=== PATIENT | female | born 1950 | race Caucasian/White ===

== ENCOUNTER 2016-06-22 15:23 | Inpatient (IN) | payer OTHER, MEDICARE ==
[~2016-06-22] VITALS: Ht 160 cm; Wt 118.8 kg
[~2016-06-22 15:23] MED LIST: GABA300C5 PO; LISI-515 PO; LOVA10TA PO; METF500T PO; NOVO7030P2 SQ; PIOG15TA5 PO
[2016-06-22] MEDS ORDERED: SODIUM CHLORIDE 0.9% FLUSH 10 ML FLUSH IV FLUSH PRN (19:15)
[2016-06-22] MEDS ORDERED: GLUCAGON 1 MG/ML VIAL OTHER PRN (19:30)
[2016-06-22] MEDS ORDERED: DEXTROSE 50% IN WATER 50 ML VIAL(D50) IV PUSH PRN (19:30)
--- NOTE | 2016-06-22 19:35 | HHI.HP ---
HPI Service [facility] Primary [facility] Physician Rajesh Curz MD Admission Diagnosis Diagnoses: (1) Atrial fibrillation with rapid ventricular response Diagnosis: Principal Chief Complaint: Chest pain Travel History International Travel<30 Days: No Contact w/Intl Traveler <30 Da: No Traveled to Known Affected Are: No History of Present Illness Ms. Santos is 65 yo, /[place] with history inclusive of diabetes, hypertension, and hyperlipidemia. Pt reported she had been ill for the past week with symptoms of malaise, headache 9x 2 days), nausea, diarrhea ("1-2 times"), backache (from coughing) and decreased food and fluid intake. She took two doses of Excedrin migraine for her headache and "it went away." pt reported she developed a cough yesterday (06/21/16) and shortly thereafter developed chest pain. Pt noted her fluid intake was decreased yet continued to have her daily "cup of coffee." Pt acknowledged she is "addicted to my coffee. If I don't get it I get a headache." Pt denied chest pain radiating to her neck or shoulder and denied nausea associated with the chest pain. Pt went to see her PCP who obtained an EKG. Upon viewing it, Ms. Santos was sent to [facility] for evaluation and management of her condition. A 10 point ROS was conducted, and except as noted above was negative. Pt denied any other issues or concerns. Review of Systems Except as stated in HPI: all other systems reviewed are Neg Past Family Social History Past Medical History Hypertension Hyperlipidemia Diabetes Past Surgical History Breast surgery for cystic tissue. Knee surgery cartilage removal Reported Medications Reported Meds & Active Scripts Active Reported Lovastatin 10 Mg Tab 10 Mg PO DAILY Pioglitazone (Pioglitazone HCl) 15 Mg Tab 15 Mg PO DAILY Novolin 70-30 Inj (Insulin Human Isoph/Insulin Regular) 1,000 Unit/10 Ml Vial 45 Units SQ BID Lisinopril 20 Mg Tab 20 Mg PO DAILY Gabapentin 300 Mg Cap 300 Mg PO HS Metformin (Metformin HCl) 500 Mg Tab Unknown Dose PO BIDPC With meals Allergies: Coded Allergies: No Known Allergies (Unverified , 06/22/16) Family History Pt's father is reported to have at age 56 due to a "massive heart attack. Father was also reported to have diabetes and alcoholism. Pt reported one of her son's had a heart attack when he was 30. Social History Pt denied smoking but endorsed living in a home in which she is subjected to second hand smoke. Alcohol use was denied Recreational and illicit drug use was denied. Caffeine use is reported to be one cup of coffee, daily. Physical Exam Vital Signs Range of vitals obtained from the [facility] report are as follows: Pulse 140-104 Respiratory rate of 20 Blood pressure 131/92-120/61 Physical Exam GENERAL: This is an obese, well-developed patient, in no apparent distress. SKIN: No rashes, ecchymoses or lesions. Cool and dry. HEAD: Atraumatic. Normocephalic. No temporal or scalp tenderness. EYES: Pupils equal round and reactive. Extraocular motions intact. No scleral icterus. No injection or drainage. ENT: Nose without bleeding, purulent drainage or septal hematoma. Throat without erythema, tonsillar hypertrophy or exudate. Uvula midline. Airway patent. NECK: Trachea midline. No JVD or lymphadenopathy. Supple, nontender, no meningeal signs. CARDIOVASCULAR: Irregularly regular rate and rhythm without murmurs, gallops, or rubs. RESPIRATORY: Clear to auscultation. Breath sounds equal bilaterally. No wheezes , rales, or rhonchi. GASTROINTESTINAL: Abdomen soft, non-tender, nondistended. No hepato-splenomegaly , or palpable masses. No guarding. MUSCULOSKELETAL: Extremities without clubbing, cyanosis, or edema. No joint tenderness, effusion, or edema noted. No calf tenderness. Negative Homans sign bilaterally. NEUROLOGICAL: Awake and alert. Cranial nerves II through XII intact. Motor and sensory grossly within normal limits. Five out of 5 muscle strength in all muscle groups. Normal speech. Laboratory WBC 5.8, HGB 14.7, HCT 44.5, PLT 254 Na 137, K 4.4, Cl 104, CO2 22, BUN 16, Creatinine 0.96, Glucose 109 D dimer 0.59 TSH 3rd generation 0.623 Imaging No acute cardiopulmonary findings. Assessment and Plan Problem List: (1) Atrial fibrillation with rapid ventricular response ICD Code: I48.91 Status: Resolved (2) Diabetes type 2, controlled ICD Code: E11.9 Status: Acute (3) Hyperlipidemia associated with type 2 diabetes mellitus ICD Code: E11.69 Status: Chronic Assessment and Plan Atrial fibrillation with rapid ventricular response Pt seems to have multifactorial issues leading to her atrial fibrillation: dehydration (due to diarrhea and decreased fluid intake), caffeine use ( diuretic effects). Echocardiogram to be ordered Pt to be placed on Holter monitor and placed on telemetry. Pt to be placed on Cardizem 60 mg q 6 hrs for rate control Consult cardiology Lovenox for atrial fibrillation 110 mg sq q 12 hrs Diabetes Will hold her long acting hyperglycemic agent, pt to be placed on sliding scale. Will hold metformin hypoglycemia to be treated per protocol Hypertension Continue home dose of lisinopril 20 mg PO daily Hyperlipidemia continue lovastatin 10 mg daily Written by Valente Morin, acting as scribe for Dr. Zaragoza on 06/22/16 at 19: 34. This note was transcribed by scribe Valente Morin I, Dr. Hernandez Flood personally performed the history, physical exam, and medical decision making; and confirmed the accuracy of the information in the transcribed note. Authenticated by Dr. Hernandez Flood on 06/27/16 at 21:38. Code Status Full code Discussed Condition With Pt, family members present at bed side, ED physician, and Chauncey Green. Physician Certification 2 Midnight Certification Type: Admission for Inpatient Services Order for Inpatient Services The services are ordered in accordance with Medicare regulations or non- Medicare payer requirements, as applicable. In the case of services not specified as inpatient-only, they are appropriately provided as inpatient services in accordance with the 2-midnight benchmark. Estimated LOS (days): 3 3 days is the estimated time the patient will need to remain in the hospital, assuming treatment plan goals are met and no additional complications. Post-Hospital Plan: Home Problem Qualifiers (1) Diabetes type 2, controlled: Qualified Code: E11.42 - Controlled type 2 diabetes mellitus with diabetic polyneuropathy, with long-term current use of insulin Valente Morin Jr. June 22, 2016 19:35 Hernandez Bee MD June 27, 2016 21:39
[2016-06-22 19:58] LABS: CHLORIDE 103 MEQ/L (98-107); POTASSIUM 4.6 MEQ/L (3.5-5.1); SODIUM (NA) 136 MEQ/L (136-145)
[2016-06-22 20:02] LABS: ANION GAP 11 MEQ/L (5-15); BICARBONATE 22.1 MEQ/L (21.0-32.0)
[2016-06-22 20:03] LABS: BLOOD UREA NITROGEN 16 MG/DL (7-18)
[2016-06-22 20:06] LABS: ALT (GPT) 42 U/L (10-53); AST (GOT) 51 U/L (15-37); GLOMERULAR FILTRATION RATE 70 ML/MIN (>89)
[2016-06-22 20:07] LABS: TOTAL BILIRUBIN ADULT 0.4 MG/DL (0.2-1.0)
[2016-06-22 20:08] LABS: ALKALINE PHOSPHATASE 71 U/L (45-117)
[2016-06-22 20:29] VITALS: BP 126/75; PULSE 73; RESP 20; TEMP 96.6; O2SAT 92
[2016-06-22] MEDS: GABAPENTIN 300 MG CAP PO SCH (20:48)
[2016-06-22] MEDS: ENOXAPARIN SODIUM 120 MG/0.8 ML SYRINGE SQ SCH (20:49)
[2016-06-22] MEDS: SODIUM CHLORIDE 0.9% FLUSH 10 ML FLUSH IV FLUSH SCH (20:51)
[2016-06-22] MEDS: INSULIN ASPART SUPPLEMENTAL SCALE SQ SCH (21:00)
[2016-06-22 21:05] VITALS: O2SAT 94
[2016-06-22 23:00] VITALS: PULSE 100
[2016-06-23] VITALS (12 sets, daily range): BP systolic 95–121; BP diastolic 53–71; PULSE 62–98; RESP 16–22; TEMP 96.9–99.1; O2SAT 90–95
[2016-06-23] MEDS: DILTIAZEM HCL 60 MG TAB PO SCH ×4 (00:46→17:36)
[2016-06-23] MEDS: INSULIN ASPART SUPPLEMENTAL SCALE SQ SCH ×4 (06:06→20:36)
[2016-06-23 08:46] LABS: HEMATOCRIT 44.9 % (35.0-46.0); MEAN CELL VOLUME 86.9 FL (80.0-100.0); MEAN CORPUSCULAR HEMOGLOBIN 28.5 PG (27.0-34.0); MEAN CORPUSCULAR HGB CONC 32.8 % (32.0-36.0); PLATELET COUNT 221 TH/MM3 (150-450); RED BLOOD COUNT 5.16 MIL/MM3 (4.00-5.30); RED CELL DISTRIBUTION WIDTH 12.8 % (11.6-17.2); REVIEW FLAG FINAL; WHITE BLOOD COUNT 4.7 TH/MM3 (4.0-11.0)
[2016-06-23] MEDS ORDERED: LISINOPRIL 20 MG TAB PO SCH (09:00)
[2016-06-23] MEDS: PRAVASTATIN SOD 10 MG TAB PO SCH (09:02)
[2016-06-23] MEDS: ENOXAPARIN SODIUM 120 MG/0.8 ML SYRINGE SQ SCH (09:03)
[2016-06-23] MEDS: SODIUM CHLORIDE 0.9% FLUSH 10 ML FLUSH IV FLUSH SCH ×2 (09:03→20:35)
[2016-06-23] MEDS: AZITHROMYCIN INJ 500 MG in SODIUM CHLOR 0.9% 250 ML INJ 250 ML IV SCH (11:57)
[2016-06-23] MEDS: cefTRIAXone INJ 2,000 MG in SODIUM CHLORIDE 0.9% INJ 100 ML IV SCH (11:57)
[2016-06-23] MEDS ORDERED: APIXABAN 5 MG TABLET PO SCH (12:00)
--- NOTE | 2016-06-23 12:13 | RADHPO ---
EXAM DATE/TIME: 06/23/2016 11:33 [facility] COMPARISON: CHEST SINGLE AP, June 22, 2016, 11:08. INDICATIONS : Cough MEDICAL HISTORY : a fib SURGICAL HISTORY : None. ENCOUNTER: Subsequent ACUITY: 2 days PAIN SCORE: 0/10 LOCATION: Bilateral chest FINDINGS: PA and lateral views of the chest demonstrate the lungs to be symmetrically aerated without evidence of mass, infiltrate or effusion. The heart size remains mildly enlarged no perihilar edema. Atherosc lerotic changes are present in the aorta. Osseous structures are intact. CONCLUSION: 1. No evidence of pneumonia. 2. Mild cardiomegaly. Yovany Canseco MD on June 23, 2016 at 12:11 Board Certified Radiologist. This report was verified electronically.
--- NOTE | 2016-06-23 14:13 | MB ---
cc: VESTA BRUCE DO DATE OF CONSULTATION: 06/23/2016. REASON FOR CONSULTATION: Atrial fibrillation with rapid ventricular response. HISTORY OF PRESENT ILLNESS: Sylvie Santos is a pleasant 65-year-old female who originally presented to the [facility] Emergency Room for a cough and feeling ill over the past few days. She states that she has not been feeling well for three to four days. She took an Excedrin Migraine for a headache which made it go away. She still continued to have a cough specifically more yesterday and with the coughing she did have some chest pain. The chest pain was only there when she was coughing. She felt that she may have had the flu so she presented to the [facility]. While there, she was found to be in atrial fibrillation with rapid ventricular response and was sent to [facility] for further admission. On seeing her, she currently asymptomatic. PAST MEDICAL HISTORY: 1. New onset atrial fibrillation. 2. Hypertension. 3. Hyperlipidemia. 4. Diabetes mellitus. PAST SURGICAL HISTORY: 1. Breast surgery for cystic tissue. 2. Knee surgery for cartilage removal. ALLERGIES: NO KNOWN DRUG ALLERGIES. MEDICATIONS: 1. Lisinopril 20 milligrams daily. 2. Gabapentin 300 milligrams every night. 3. Metformin 500 milligrams twice a day. 4. Lovastatin 10 milligrams daily. 5. Novolin 70/30 45 units twice a day. 6. Pioglitazone 15 milligrams daily. FAMILY HISTORY: Per the patient, her father at the age of 55 due to a massive heart attack. SOCIAL HISTORY: The patient does not smoke but she does live in a home where she is subjected to secondhand smoke. Denies alcohol or illicit drug abuse. Does drink one cup of coffee daily. REVIEW OF SYSTEMS Fourteen systems were reviewed including osteopathic with pertinent positives and negatives as above; otherwise negative. PHYSICAL EXAMINATION VITAL SIGNS: Temperature 97.2, heart rate 62, blood pressure 114/67, respirations 20, pulse oximetry 95% on one liter. GENERAL: In general the patient appears well and in no acute distress. Awake, alert and oriented times three. HEENT: Extraocular muscles intact. Mucous membranes moist. NECK: The neck is supple. No JVD at 45 degrees. No carotid bruits heard bilaterally. Carotid upstroke is brisk in nature. HEART: Regular rate and rhythm. Positive first and second heart sounds with no noted murmurs, gallops or rubs. LUNGS: Decreased breath sounds at bilateral bases but no overt wheezes, rales or rhonchi. ABDOMEN: Soft, obese, nontender, nondistended. No organomegaly noted. EXTREMITIES: Trace edema bilaterally. No clubbing or cyanosis. NEUROLOGIC: No focal deficits. SKIN: Warm, dry and intact. OSTEOPATHIC: Osteopathically, mild lordosis. No kyphoscoliosis or paraspinal tender points. LABORATORY STUDIES: Hemoglobin 14.7, hematocrit 44.9, platelets 221,000. Potassium 4.6, BUN 16, creatinine 0.82. Troponin negative x2. BNP 69. TSH is 0.623. IMPRESSION: 1. New onset atrial fibrillation for which she presented with rapid ventricular response, [id number] score of 4. 2. Pleuritic type chest pain secondary to coughing. 3. Diabetes mellitus type 2. 4. History of hypertension 5. Obesity. RECOMMENDATIONS: 1. Ms. Santos appears to have presented with atrial fibrillation with rapid ventricular response. She was treated with Cardizem IV and then followed up with oral Cardizem and has since been in normal sinus rhythm. Will plan to continue her on Cardizem p.o. and this may be transferred to long-acting Cardizem upon discharge. 2. She has been started on Lovenox injections, and I believe with the high [id number] score of 4, that she should be on anticoagulation long-term. I discussed this with her and she states that she has no falls and no problems with bleeding. Will plan on placing her on Eliquis 5 milligrams twice a day. Will ask case management to see if they can help with resources for her to make sure that she can get her medications. After Eliquis has been started, Lovenox IV can be stopped. 3. Will check a 2-D echo for overall left ventricular function, cardiac structure and possible valvulopathies. 4. Will plan to watch her overnight and if stable in the morning can be discharged home. I did ask that she follow up with one of the cardiologists in the [place] office. She does not drive but will find a ride and set up an appointment. Thank you for allowing me to see Sylvie Santos. If there are any questions please do not hesitate to call. Vesta RIOS/BECK /11:48 AM /1:58 PM
--- NOTE | 2016-06-23 14:30 | HHI.PR ---
Subjective Remarks Patient c/o cough and productive sputum denies cp, sob or palpitations denies diarrhea, nausea, vomiting states feels better satting 90% on 1 liter nasal canula Objective Vitals Vital Signs Date Time Temp Pulse Resp B/P Pulse Ox O2 Delivery O2 Flow Rate FiO2 06/23/16 13:45 84 06/23/16 12:00 97.7 89 20 121/61 93 06/23/16 08:00 97.2 62 20 114/67 90 06/23/16 05:43 98.3 66 18 105/68 95 06/23/16 00:29 99.1 72 22 103/53 92 06/22/16 23:00 100 06/22/16 21:05 94 Nasal Cannula 1.00 06/22/16 20:29 96.6 73 20 126/75 92 I/O 06/22/16 06/22/16 06/22/16 06/23/16 06/23/16 06/23/16 07:00 15:00 23:00 07:00 15:00 23:00 Intake Total 0 ml 810 ml Balance 0 ml 810 ml Intake Oral 450 ml IV Total 0 ml 360 ml # Voids 1 3 Result Diagram: 06/23/16 0830 06/22/16 1940 Imaging Last Impressions Chest X-Ray 06/23/16 0000 Signed Impressions: Service Date/Time: Thursday, June 23, 2016 11:33 - CONCLUSION: 1. No evidence of pneumonia. 2. Mild cardiomegaly. Yovany Canseco MD Objective Remarks GENERAL: This is an obese, well-developed patient, in no apparent distress. SKIN: No rashes, ecchymoses or lesions. Cool and dry. HEAD: Atraumatic. Normocephalic. No temporal or scalp tenderness. EYES: Pupils equal round and reactive. Extraocular motions intact. No scleral icterus. No injection or drainage. ENT: Nose without bleeding, purulent drainage or septal hematoma. Throat without erythema, tonsillar hypertrophy or exudate. Uvula midline. Airway patent. NECK: Trachea midline. No JVD or lymphadenopathy. Supple, nontender, no meningeal signs. CARDIOVASCULAR: Irregularly regular rate and rhythm without murmurs, gallops, or rubs. RESPIRATORY: Crackles auscultated in the right base. The rest of the lung avitia are clear to auscultation. GASTROINTESTINAL: Abdomen soft, non-tender, nondistended. No hepato-splenomegaly , or palpable masses. No guarding. MUSCULOSKELETAL: Extremities without clubbing, cyanosis, or edema. No joint tenderness, effusion, or edema noted. No calf tenderness. Negative Homans sign bilaterally. NEUROLOGICAL: Awake and alert. Cranial nerves II through XII intact. Motor and sensory grossly within normal limits. Five out of 5 muscle strength in all muscle groups. Normal speech. Medications and IVs Current Medications Medications (Trade) Dose Ordered Sig/Jeanine Route Start Time Stop Time Status Last Admin (NS Flush) 2 ml UNSCH PRN IV FLUSH 06/22/16 19:15 (NS Flush) 2 ml BID IV FLUSH 06/22/16 21:00 06/23/16 09:03 (Cardizem) 60 mg Q6HR PO 06/23/16 00:00 06/23/16 11:57 (Neurontin) 300 mg HS PO 06/22/16 21:00 06/22/16 20:48 (Prinivil) 20 mg DAILY PO 06/23/16 09:00 (Pravachol) 10 mg DAILY PO 06/23/16 09:00 06/23/16 09:02 (D50w (Vial) Inj) 25 ml UNSCH PRN IV PUSH 06/22/16 19:30 Glucagon 1 mg 1 mg UNSCH PRN OTHER 06/22/16 19:30 Ceftriaxone Sodium 2000 mg/ Sodium Chloride 100 ml @ 200 mls/hr Q24H IV 06/23/16 12:00 06/23/16 11:57 (Zithromax Inj/ NS 250 ml Inj) 250 ml @ 250 mls/hr Q24H IV 06/23/16 13:00 06/23/16 11:57 (Eliquis) 5 mg BID PO 06/23/16 21:00 Urinary Catheter: No Vascular Central Line Catheter: No A/P Problem List: (1) New onset atrial fibrillation ICD Code: I48.91 Status: Acute Plan: Patient with new onset atrial fibrillation with multifactorial issues including to atrial fibrillation including dehydration, caffeine use and suspected early pneumonia versus bronchitis since patient has had cough and congestion for the past week. Echocardiogram ordered and pending, continue to monitor on telemetry Heart rate seems to be controlled on Cardizem 60 mg by mouth every 6 hours for rate control Cardiology consulted Patient started on Lovenox and transition to Eliquis (2) Atrial fibrillation with rapid ventricular response ICD Code: I48.91 Status: Resolved Plan: As above. (3) Diabetes mellitus with hyperglycemia ICD Code: E11.65 Status: Chronic Plan: Check hemoglobin A1c. Patient started on necessary with insulin NovoLog as patient has reportedly had episodes of hypoglycemia at home. I will resume Novolin 70/30 at 15 units subcutaneously twice a day. I will also resume pioglitazone. Continue to monitor Accu-Cheks and continue to cover blood sugars with SSI with insulin NovoLog. (4) H/O hypoglycemia ICD Code: Z86.39 Status: Acute Plan: All home diabetes medications held admission due to multiple episodes of hypoglycemic events reported by the patient. I will restart insulin Novolin 7030 at 15 units subcutaneous twice a day. I will also restart pioglitazone and continue to hold metformin. (5) Hyperlipidemia associated with type 2 diabetes mellitus ICD Code: E11.69 Status: Chronic Plan: Continue statin. (6) HTN (hypertension) ICD Code: I10 Status: Chronic Plan: Blood pressure seems to be stable. Continue lisinopril. (7) Cough ICD Code: R05 Status: Acute Plan: Patient has crackles in the right lung base. Patient complains of cough with greenish productive sputum. This is associated with the crackles at the right lung base clinically suspicious for early pneumonia versus bronchitis. I will check a chest x-ray, sputum culture, strep and pneumococcal urinary antigen. I will start the patient on empiric IV Rocephin and azithromycin to cover for community-acquired pneumonia which could've easily been one of the factors in offsetting the atrial fibrillation with RVR. Assessment and Plan DVT prophylaxis: On Eliquis. Problem Qualifiers (1) Diabetes mellitus with hyperglycemia: (2) HTN (hypertension): Qualified Code: I10 - Essential hypertension Hernandez Bee MD June 23, 2016 14:30
--- NOTE | 2016-06-23 14:53 | EC ---
Study Study Date:06/23/2016 STUDY CONCLUSIONS SUMMARY - Left ventricle: The cavity size was normal. Wall thickness was normal. Systolic function was normal. The estimated ejection fraction was in the range of 60% to 65%. Wall motion was normal; there were no regional wall motion abnormalities. Left ventricular diastolic function parameters were normal. - Aortic valve: Valve area: 2.05cm^2(VTI). Valve area: 2.03cm^2 (Vmax). - Pulmonary arteries: PA peak pressure: 39mm Hg (S). If LV function is below 40, please consider prescribing an ACEI or ARB or document rationale for non-use. PROCEDURE DATA STUDY STATUS: Elective. Procedure: Transthoracic echocardiography. Image quality was good. Scanning was performed from the parasternal, apical, and subcostal acoustic windows. Study completion: The patient tolerated the procedure well. Transthoracic echocardiography. M-mode, complete 2D, complete spectral Doppler, and color Doppler. Height: Height: 63in. Weight: Weight: 257.5lb. Body mass index: BMI: 45.7kg/m^2. Body surface area: BSA: 2.15m^2. Patient status: Inpatient. CARDIAC ANATOMY LEFT VENTRICLE: The cavity size was normal. Wall thickness was normal. Systolic function was normal. The estimated ejection fraction was in the range of 60% to 65%. Wall motion was normal; there were no regional wall motion abnormalities. The transmitral flow pattern was normal. The deceleration time of the early transmitral flow velocity was normal. The pulmonary vein flow pattern was normal. The tissue Doppler parameters were normal. Left ventricular diastolic function parameters were normal. AORTIC VALVE: Trileaflet; normal thickness leaflets. Doppler: Transvalvular velocity was within the normal range. There was no stenosis. No regurgitation. Valve area: 2.05cm^2(VTI). Indexed valve area: 0.95cm^2/m^2 (VTI). Valve area: 2.03cm^2 (Vmax). Indexed valve area: 0.94cm^2/m^2 (Vmax). Mean gradient: 6mm Hg (S). Peak gradient: 11mm Hg (S). AORTA: Aortic root: The aortic root was normal in size. MITRAL VALVE: Structurally normal valve. Doppler: Transvalvular velocity was within the normal range. There was no evidence for stenosis. Trace to mild regurgitation. Peak gradient: 4mm Hg (D). LEFT ATRIUM: The atrium was normal in size. RIGHT VENTRICLE: The cavity size was normal. Wall thickness was normal. Systolic pressure was within the normal range. PULMONIC VALVE: Doppler: Transvalvular velocity was within the normal range. There was no evidence for stenosis. Trace regurgitation. TRICUSPID VALVE: Structurally normal valve. Doppler: Transvalvular velocity was within the normal range. Trace to mild regurgitation. PULMONARY ARTERY: The main pulmonary artery was normal-sized. Systolic pressure was within the normal range. RIGHT ATRIUM: The atrium was normal in size. PERICARDIUM: There was no pericardial effusion. SYSTEMIC VEINS: Inferior vena cava: The vessel was normal in size. Patient weight: 257.5lb _Ejection fraction:_ 65-75% _Fractional shortening:_ 32% up to 5Kg 5-11.5Kg 11.6-22.9Kg 23-45Kg 45-57Kg Aortic Root 7-13 <17 13-22 17-27 17-27 LA diam 6-13 <23 24-38 33-47 37-40 RVID 10-17 7-15 7-15 7-18 8-17 LVIDd 12-22 <32 24-38 33-47 37-40 LVPW 2-4 3-6 5-7 6-8 7-8 IVS 2-4 3-6 5-7 6-8 7-8 BASIC MEASUREMENTS ADULT NORMAL Left ventricle LV internal dimension, ED, chordal *54.9 mm 43-52 level, PLAX LV internal dimension, ES, chordal 34.9 mm 23-38 level, PLAX Fractional shortening, chordal level, 36 % >29 PLAX LV posterior wall thickness, ED 8.8 mm IVS/LVPW ratio, ED 0.94 <1.3 Ventricular septum Septal thickness, ED 8.29 mm Aortic valve Leaflet separation 20 mm 15-26 Aorta Root diameter, ED 30 mm Left atrium Anterior-posterior dimension 35 mm Anterior-posterior dimension index 1.63 cm/m^2 <2.2 BASIC MEASUREMENTS ADULT NORMAL Aortic valve Leaflet separation 20 mm 15-26 DOPPLER MEASUREMENTS ADULT NORMAL Main pulmonary artery Pressure, S *39 mm Hg =30 Aortic valve Peak velocity, S 168 cm/s Mean velocity, S 115 cm/s VTI, S 33.4 cm Mean gradient, S 6 mm Hg Peak gradient, S 11 mm Hg Valve area, VTI 2.05 cm^2 Valve area index, VTI 0.95 cm^2/m^2 Valve area, Vmax 2.03 cm^2 Valve area index, Vmax 0.94 cm^2/m^2 Mitral valve Peak E-wave velocity 104 cm/s Peak A-wave velocity 80.5 cm/s Deceleration time 208 ms 150-230 Peak gradient, D 4 mm Hg Peak E/A ratio 1.3 Tricuspid valve Regurgitant peak velocity 273 cm/s Peak RV-RA gradient, S 30 mm Hg Maximal regurgitant velocity 273 cm/s Systemic veins Estimated CVP 10 mm Hg Right ventricle RV pressure, S *40 mm Hg <30 Pulmonic valve Peak velocity, S 54.1 cm/s LEGEND: Mean values are shown as u=mean value. Asterisk (*) sidhu values outside specified normal range. Prepared and signed by Eligio Knox [id number]
[2016-06-23] MEDS: DILTIAZEM HCL 30 MG TAB PO SCH (18:00)
[2016-06-23] MEDS: APIXABAN 5 MG TABLET PO SCH (20:35)
[2016-06-23] MEDS: GABAPENTIN 300 MG CAP PO SCH (20:35)
[2016-06-24] VITALS (10 sets, daily range): BP systolic 82–118; BP diastolic 59–79; PULSE 78–105; RESP 16–20; TEMP 96.3–98.9; O2SAT 92–99
[2016-06-24] MEDS: DILTIAZEM HCL 30 MG TAB PO SCH ×4 (05:53→18:26)
[2016-06-24] MEDS: INSULIN ASPART SUPPLEMENTAL SCALE SQ SCH ×4 (06:28→20:56)
[2016-06-24] MEDS: APIXABAN 5 MG TABLET PO SCH ×2 (08:36→20:56)
[2016-06-24] MEDS: SODIUM CHLORIDE 0.9% FLUSH 10 ML FLUSH IV FLUSH SCH ×2 (08:36→20:56)
[2016-06-24] MEDS: PRAVASTATIN SOD 10 MG TAB PO SCH (08:36)
[2016-06-24] MEDS ORDERED: SODIUM CHLORID 0.9% 500 ML INJ 500 ML IV ONE (08:45)
[2016-06-24] MEDS ORDERED: DILTIAZEM HCL 30 MG TAB PO ONE (09:00)
--- NOTE | 2016-06-24 10:05 | PD.CARD.PN ---
Subjective Subjective Remarks No chest pain, no shortness of breath Objective Medications Current Medications Medications (Trade) Dose Ordered Sig/Jeanine Route Start Time Stop Time Status Last Admin (NS Flush) 2 ml UNSCH PRN IV FLUSH 06/22/16 19:15 (NS Flush) 2 ml BID IV FLUSH 06/22/16 21:00 06/24/16 08:36 (Neurontin) 300 mg HS PO 06/22/16 21:00 06/23/16 20:35 (Prinivil) 20 mg DAILY PO 06/23/16 09:00 Hold (Pravachol) 10 mg DAILY PO 06/23/16 09:00 06/24/16 08:36 (D50w (Vial) Inj) 25 ml UNSCH PRN IV PUSH 06/22/16 19:30 Glucagon 1 mg 1 mg UNSCH PRN OTHER 06/22/16 19:30 Ceftriaxone Sodium 2000 mg/ Sodium Chloride 100 ml @ 200 mls/hr Q24H IV 06/23/16 12:00 06/23/16 11:57 (Zithromax Inj/ NS 250 ml Inj) 250 ml @ 250 mls/hr Q24H IV 06/23/16 13:00 06/23/16 11:57 (Eliquis) 5 mg BID PO 06/23/16 21:00 06/24/16 08:36 (Cardizem) 30 mg Q6HR PO 06/24/16 12:00 Vital Signs / I&O Vital Signs Date Time Temp Pulse Resp B/P Pulse Ox O2 Delivery O2 Flow Rate FiO2 06/24/16 07:58 97.9 99 20 115/72 93 06/24/16 07:01 92 06/24/16 04:50 96.3 78 20 99/60 99 06/24/16 00:56 98.9 81 16 92/62 92 06/23/16 23:00 81 06/23/16 21:01 98.7 84 16 95/61 92 06/23/16 20:29 98.7 84 16 95/61 92 06/23/16 19:59 98 06/23/16 19:50 93 21 06/23/16 16:00 96.9 86 20 101/71 93 06/23/16 15:07 90 06/23/16 13:45 84 06/23/16 12:00 97.7 89 20 121/61 93 I/O 06/23/16 06/23/16 06/23/16 06/24/16 06/24/16 06/24/16 07:00 15:00 23:00 07:00 15:00 23:00 Intake Total 0 ml 810 ml Balance 0 ml 810 ml Intake Oral 450 ml IV Total 0 ml 360 ml # Voids 3 3 Physical Exam GENERAL: NAD, AAOx3 SKIN: Warm and dry. HEAD: Atraumatic. Normocephalic. EYES: Pupils equal and round. No scleral icterus. No injection or drainage. ENT: No nasal bleeding or discharge. Mucous membranes pink and moist. NECK: Trachea midline. No JVD. CARDIOVASCULAR: Irregularly irregular RESPIRATORY: No accessory muscle use. Decreased breath sounds bilaterally GASTROINTESTINAL: Abdomen soft, non-tender, nondistended. Hepatic and splenic margins not palpable. MUSCULOSKELETAL: Trace edema bilaterally NEUROLOGICAL: Awake and alert. No obvious cranial nerve deficits. Motor grossly within normal limits. Five out of 5 muscle strength in the arms and legs. Normal speech. PSYCHIATRIC: Appropriate mood and affect; insight and judgment normal. Laboratory Laboratory Tests Test 06/22/16 06/23/16 19:40 08:30 Sodium Level 136 MEQ/L (136-145) Potassium Level 4.6 MEQ/L (3.5-5.1) Chloride Level 103 MEQ/L (98-107) Carbon Dioxide Level 22.1 MEQ/L (21.0-32.0) Anion Gap 11 MEQ/L (5-15) Blood Urea Nitrogen 16 MG/DL (7-18) Creatinine 0.82 MG/DL (0.50-1.00) Estimat Glomerular Filtration 70 ML/MIN (>89) Rate Random Glucose 189 MG/DL (74-106) Calcium Level 9.4 MG/DL (8.5-10.1) Total Bilirubin 0.4 MG/DL (0.2-1.0) Aspartate Amino Transf 51 U/L (15-37) (AST/SGOT) Alanine Aminotransferase 42 U/L (10-53) (ALT/SGPT) Alkaline Phosphatase 71 U/L (45-117) Total Protein 8.0 GM/DL (6.4-8.2) Albumin 3.3 GM/DL (3.4-5.0) White Blood Count 4.7 TH/MM3 (4.0-11.0) Red Blood Count 5.16 MIL/MM3 (4.00-5.30) Hemoglobin 14.7 GM/DL (11.6-15.3) Hematocrit 44.9 % (35.0-46.0) Mean Corpuscular Volume 86.9 FL (80.0-100.0) Mean Corpuscular Hemoglobin 28.5 PG (27.0-34.0) Mean Corpuscular Hemoglobin 32.8 % Concent (32.0-36.0) Red Cell Distribution Width 12.8 % (11.6-17.2) Platelet Count 221 TH/MM3 (150-450) Mean Platelet Volume 8.5 FL (7.0-11.0) Assessment and Plan Problem List: (1) New onset atrial fibrillation (2) Atrial fibrillation with rapid ventricular response (3) Diabetes mellitus with hyperglycemia (4) HTN (hypertension) Assessment and Plan 1) New onset Atrial Fibrillation, CHADSVASc = 4 Started on Eliquis 5mg BID Heart rates mostly controlled on Cardizem, can change to long acting on discharge 2) EF 60-65% 3) Cardiovascularly stable for discharge 4) [place] office for follow up and consideration of outpatient stress testing 5) Will see PRN, call with questions Problem Qualifiers (1) Diabetes mellitus with hyperglycemia: (2) HTN (hypertension): Qualified Code: I10 - Essential hypertension Gabino Sinclair DO June 24, 2016 10:05
[2016-06-24] MEDS ORDERED: RESP: ALBUTEROL 0.63 MG/3 ML NEB (SCH) NEB ONE (10:30)
--- NOTE | 2016-06-24 11:25 | HHI.PR ---
Subjective Remarks As per RN the patient's blood pressure has been low since yesterday and the patient did not get her doses of by mouth Cardizem The patient tolerated this a.m. was in the 150s to 160s as reported by RN Patient denies chest pain or short of breath Denies palpitations States she is still coughing and bringing up greenish phlegm, however the cough has been improving. Denies fevers or chills Denies diarrhea Objective Vitals Vital Signs Date Time Temp Pulse Resp B/P Pulse Ox O2 Delivery O2 Flow Rate FiO2 06/24/16 10:30 93 21 06/24/16 07:58 97.9 99 20 115/72 93 06/24/16 07:01 92 06/24/16 04:50 96.3 78 20 99/60 99 06/24/16 00:56 98.9 81 16 92/62 92 06/23/16 23:00 81 06/23/16 21:01 98.7 84 16 95/61 92 06/23/16 20:29 98.7 84 16 95/61 92 06/23/16 19:59 98 06/23/16 19:50 93 21 06/23/16 16:00 96.9 86 20 101/71 93 06/23/16 15:07 90 06/23/16 13:45 84 06/23/16 12:00 97.7 89 20 121/61 93 I/O 06/23/16 06/23/16 06/23/16 06/24/16 06/24/16 06/24/16 07:00 15:00 23:00 07:00 15:00 23:00 Intake Total 0 ml 810 ml Balance 0 ml 810 ml Intake Oral 450 ml IV Total 0 ml 360 ml # Voids 3 3 Result Diagram: 06/23/16 0830 06/22/16 1940 Imaging Last Impressions Chest X-Ray 06/23/16 0000 Signed Impressions: Service Date/Time: Thursday, June 23, 2016 11:33 - CONCLUSION: 1. No evidence of pneumonia. 2. Mild cardiomegaly. Yovany Canseco MD Objective Remarks GENERAL: This is an obese, well-developed patient, in no apparent distress. SKIN: No rashes, ecchymoses or lesions. Cool and dry. HEAD: Atraumatic. Normocephalic. No temporal or scalp tenderness. EYES: Pupils equal round and reactive. Extraocular motions intact. No scleral icterus. No injection or drainage. ENT: Nose without bleeding, purulent drainage or septal hematoma. Throat without erythema, tonsillar hypertrophy or exudate. Uvula midline. Airway patent. NECK: Trachea midline. No JVD or lymphadenopathy. Supple, nontender, no meningeal signs. CARDIOVASCULAR: Irregularly regular rate and rhythm without murmurs, gallops, or rubs. RESPIRATORY: Expiratory wheezing on right lung field. The rest of the lung avitia are clear to auscultation. GASTROINTESTINAL: Abdomen soft, non-tender, nondistended. No hepato-splenomegaly , or palpable masses. No guarding. MUSCULOSKELETAL: Extremities without clubbing, cyanosis, or edema. No joint tenderness, effusion, or edema noted. No calf tenderness. Negative Homans sign bilaterally. NEUROLOGICAL: Awake and alert. Cranial nerves II through XII intact. Motor and sensory grossly within normal limits. Five out of 5 muscle strength in all muscle groups. Normal speech. Procedures None Medications and IVs Current Medications Medications (Trade) Dose Ordered Sig/Jeanine Route Start Time Stop Time Status Last Admin (NS Flush) 2 ml UNSCH PRN IV FLUSH 06/22/16 19:15 (NS Flush) 2 ml BID IV FLUSH 06/22/16 21:00 06/24/16 08:36 (Neurontin) 300 mg HS PO 06/22/16 21:00 06/23/16 20:35 (Prinivil) 20 mg DAILY PO 06/23/16 09:00 Hold (Pravachol) 10 mg DAILY PO 06/23/16 09:00 06/24/16 08:36 (D50w (Vial) Inj) 25 ml UNSCH PRN IV PUSH 06/22/16 19:30 Glucagon 1 mg 1 mg UNSCH PRN OTHER 06/22/16 19:30 Ceftriaxone Sodium 2000 mg/ Sodium Chloride 100 ml @ 200 mls/hr Q24H IV 06/23/16 12:00 06/23/16 11:57 (Zithromax Inj/ NS 250 ml Inj) 250 ml @ 250 mls/hr Q24H IV 06/23/16 13:00 06/23/16 11:57 (Eliquis) 5 mg BID PO 06/23/16 21:00 06/24/16 08:36 (Cardizem) 30 mg Q6HR PO 06/24/16 12:00 Urinary Catheter: No Vascular Central Line Catheter: No A/P Problem List: (1) New onset atrial fibrillation ICD Code: I48.91 Status: Acute (2) Atrial fibrillation with rapid ventricular response ICD Code: I48.91 Status: Resolved (3) Diabetes mellitus with hyperglycemia ICD Code: E11.65 Status: Chronic (4) H/O hypoglycemia ICD Code: Z86.39 Status: Acute (5) Hyperlipidemia associated with type 2 diabetes mellitus ICD Code: E11.69 Status: Chronic (6) HTN (hypertension) ICD Code: I10 Status: Chronic (7) Cough ICD Code: R05 Status: Acute (8) Wheezing ICD Code: R06.2 Status: Acute Plan: Will give treatment with inhaled albuterol 0.63% to minimize tachycardia. (9) CAP (community acquired pneumonia) ICD Code: J18.9 Status: Acute Assessment and Plan (1) New onset atrial fibrillation Plan: Patient with new onset atrial fibrillation with multifactorial issues including to atrial fibrillation including dehydration, caffeine use and suspected early pneumonia versus bronchitis since patient has had cough and congestion for the past week. Echocardiogram ordered and pending, continue to monitor on telemetry Dose of Cardizem decreased to 30 mg by mouth every 6 hours due to blood pressure being low. Holding parameters written. Cardiology consulted Patient started on Lovenox and transition to Eliquis (2) Atrial fibrillation with rapid ventricular response Plan: As above. (3) Diabetes mellitus with hyperglycemia Plan: Check hemoglobin A1c. Patient started on necessary with insulin NovoLog as patient has reportedly had episodes of hypoglycemia at home. Patient started on Novolin 70/30 at 50 units subcutaneously twice a day. Pioglitazone resumed. Blood sugars much improved. Continue SSI with insulin NovoLog and continue to monitor Accu-Cheks. (4) H/O hypoglycemia Plan: All home diabetes medications held admission due to multiple episodes of hypoglycemic events reported by the patient. No episodes of hypoglycemia on above-mentioned insulin regimen. (5) Hyperlipidemia associated with type 2 diabetes mellitus Plan: Continue statin. (6) HTN (hypertension)c Plan: Blood pressure in the 90s systolic yesterday and overnight. I will give 500 mL of normal saline IV bolus and hold lisinopril for now. (7) community-acquired pneumonia Plan: Patient has crackles in the right lung base. Patient complains of cough with greenish productive sputum. This is associated with the crackles at the right lung base clinically suspicious for early pneumonia versus bronchitis. I will check a chest x-ray, sputum culture, strep and pneumococcal urinary antigen. I will start the patient on empiric IV Rocephin and azithromycin to cover for community-acquired pneumonia which could've easily been one of the factors in offsetting the atrial fibrillation with RVR. DVT prophylaxis: On Eliquis. Discharge Planning Possible discharge later today or tomorrow in a.m. if rate controlled and wheezing improved. Problem Qualifiers (1) Diabetes mellitus with hyperglycemia: (2) HTN (hypertension): Qualified Code: I10 - Essential hypertension Hernandez Bee MD June 24, 2016 11:24
[2016-06-24] MEDS: cefTRIAXone INJ 2,000 MG in SODIUM CHLORIDE 0.9% INJ 100 ML IV SCH (11:42)
[2016-06-24] MEDS: AZITHROMYCIN INJ 500 MG in SODIUM CHLOR 0.9% 250 ML INJ 250 ML IV SCH (11:43)
[2016-06-24] MEDS ORDERED: DILTIAZEM HCL 60 MG TAB PO SCH (12:00)
[2016-06-24 12:59] LABS: HEMATOCRIT 43.4 % (35.0-46.0); MEAN CELL VOLUME 85.6 FL (80.0-100.0); MEAN CORPUSCULAR HEMOGLOBIN 28.5 PG (27.0-34.0); MEAN CORPUSCULAR HGB CONC 33.3 % (32.0-36.0); PLATELET COUNT 188 TH/MM3 (150-450); RED BLOOD COUNT 5.06 MIL/MM3 (4.00-5.30); RED CELL DISTRIBUTION WIDTH 12.7 % (11.6-17.2); WHITE BLOOD COUNT 6.9 TH/MM3 (4.0-11.0)
[2016-06-24 13:05] LABS: REVIEW FLAG FINAL
[2016-06-24] MEDS ORDERED: DIGOXIN 0.25 MG TAB PO ONE (13:30)
[2016-06-24 13:57] LABS: ANION GAP 8 MEQ/L (5-15); BICARBONATE 25.7 MEQ/L (21.0-32.0); BLOOD UREA NITROGEN 16 MG/DL (7-18); CHLORIDE 107 MEQ/L (98-107); GLOMERULAR FILTRATION RATE 80 ML/MIN (>89); POTASSIUM 3.7 MEQ/L (3.5-5.1); SODIUM (NA) 141 MEQ/L (136-145)
[2016-06-24] MEDS: GABAPENTIN 300 MG CAP PO SCH (20:56)
[2016-06-25] VITALS (9 sets, daily range): BP systolic 119–143; BP diastolic 58–69; PULSE 77–93; RESP 18–20; TEMP 97.3–98.1; O2SAT 93–96
[2016-06-25] MEDS: DILTIAZEM HCL 30 MG TAB PO SCH ×2 (00:03→05:26)
[2016-06-25] MEDS: INSULIN ASPART SUPPLEMENTAL SCALE SQ SCH ×4 (05:59→20:56)
[2016-06-25] MEDS: PRAVASTATIN SOD 10 MG TAB PO SCH (08:35)
[2016-06-25] MEDS: APIXABAN 5 MG TABLET PO SCH ×2 (08:35→20:55)
[2016-06-25] MEDS: SODIUM CHLORIDE 0.9% FLUSH 10 ML FLUSH IV FLUSH SCH ×2 (08:36→20:55)
[2016-06-25] MEDS ORDERED: DILTIAZEM-CD 120 MG CAP ER PO SCH (09:00)
[2016-06-25 11:12] LABS: HEMOGLOBIN A1a 1.1 %; HEMOGLOBIN Ao 82.6 %; HEMOGLOBIN LA1C 2.3 %; HEMOGLOBIN P3 4.3 %
[2016-06-25] MEDS: cefTRIAXone INJ 2,000 MG in SODIUM CHLORIDE 0.9% INJ 100 ML IV SCH (12:00)
[2016-06-25] MEDS: AZITHROMYCIN INJ 500 MG in SODIUM CHLOR 0.9% 250 ML INJ 250 ML IV SCH (13:00)
--- NOTE | 2016-06-25 15:41 | PD.CARD.PN ---
Subjective Subjective Remarks No chest pain, no shortness of breath Some coughing Telemetry with controlled ventricular response with episodes of rapid ventricular response with HRs 140-160 Transferred over from [facility] due to Rapid Afib with mild hypotension Objective Medications Current Medications Medications (Trade) Dose Ordered Sig/Jeanine Route Start Time Stop Time Status Last Admin (NS Flush) 2 ml UNSCH PRN IV FLUSH 06/22/16 19:15 (NS Flush) 2 ml BID IV FLUSH 06/22/16 21:00 06/25/16 08:36 (Neurontin) 300 mg HS PO 06/22/16 21:00 06/24/16 20:56 (Prinivil) 20 mg DAILY PO 06/23/16 09:00 Hold (Pravachol) 10 mg DAILY PO 06/23/16 09:00 06/25/16 08:35 (D50w (Vial) Inj) 25 ml UNSCH PRN IV PUSH 06/22/16 19:30 Glucagon 1 mg 1 mg UNSCH PRN OTHER 06/22/16 19:30 Ceftriaxone Sodium 2000 mg/ Sodium Chloride 100 ml @ 200 mls/hr Q24H IV 06/23/16 12:00 06/25/16 12:00 (Zithromax Inj/ NS 250 ml Inj) 250 ml @ 250 mls/hr Q24H IV 06/23/16 13:00 06/25/16 13:00 (Eliquis) 5 mg BID PO 06/23/16 21:00 06/25/16 08:35 (Cardizem Cd) 120 mg DAILY PO 06/25/16 09:00 06/25/16 08:35 Vital Signs / I&O Vital Signs Date Time Temp Pulse Resp B/P Pulse Ox O2 Delivery O2 Flow Rate FiO2 06/25/16 12:09 98.1 92 18 130/66 94 06/25/16 10:51 96 06/25/16 10:13 2.00 06/25/16 08:29 97.9 78 18 120/58 96 06/25/16 08:00 98 Room Air 06/25/16 04:00 97.4 93 20 122/58 93 06/25/16 04:00 Room Air 06/25/16 00:00 Room Air 06/25/16 00:00 97.3 77 18 120/65 94 06/24/16 20:00 97.7 97 20 118/79 93 06/24/16 20:00 101 06/24/16 20:00 Room Air 06/24/16 18:44 103 06/24/16 16:25 97.5 96 20 114/64 92 06/24/16 16:00 96.6 105 20 104/68 93 I/O 06/24/16 06/24/16 06/24/16 06/25/16 06/25/16 06/25/16 07:00 15:00 23:00 07:00 15:00 23:00 Intake Total 630 ml 360 ml 120 ml Balance 630 ml 360 ml 120 ml Intake Oral 630 ml 360 ml 120 ml # Voids 3 3 2 2 # Bowel Movements 0 Physical Exam GENERAL: NAD, AAOx3 SKIN: Warm and dry. HEAD: Atraumatic. Normocephalic. EYES: Pupils equal and round. No scleral icterus. No injection or drainage. ENT: No nasal bleeding or discharge. Mucous membranes pink and moist. NECK: Trachea midline. No JVD. CARDIOVASCULAR: Irregularly irregular RESPIRATORY: No accessory muscle use. Decreased breath sounds bilaterally GASTROINTESTINAL: Abdomen soft, non-tender, nondistended. Hepatic and splenic margins not palpable. MUSCULOSKELETAL: Trace edema bilaterally NEUROLOGICAL: Awake and alert. No obvious cranial nerve deficits. Motor grossly within normal limits. Five out of 5 muscle strength in the arms and legs. Normal speech. PSYCHIATRIC: Appropriate mood and affect; insight and judgment normal. Laboratory Laboratory Tests Test 06/22/16 06/23/16 06/24/16 19:40 08:30 12:30 Sodium Level 136 MEQ/L 141 MEQ/L (136-145) (136-145) Potassium Level 4.6 MEQ/L 3.7 MEQ/L (3.5-5.1) (3.5-5.1) Chloride Level 103 MEQ/L 107 MEQ/L (98-107) (98-107) Carbon Dioxide Level 22.1 MEQ/L 25.7 MEQ/L (21.0-32.0) (21.0-32.0) Anion Gap 11 MEQ/L (5-15) 8 MEQ/L (5-15) Blood Urea Nitrogen 16 MG/DL (7-18) 16 MG/DL (7-18) Creatinine 0.82 MG/DL 0.73 MG/DL (0.50-1.00) (0.50-1.00) Estimat Glomerular Filtration 70 ML/MIN (>89) 80 ML/MIN (>89) Rate Random Glucose 189 MG/DL 122 MG/DL (74-106) (74-106) Calcium Level 9.4 MG/DL 8.6 MG/DL (8.5-10.1) (8.5-10.1) Total Bilirubin 0.4 MG/DL (0.2-1.0) Aspartate Amino Transf 51 U/L (15-37) (AST/SGOT) Alanine Aminotransferase 42 U/L (10-53) (ALT/SGPT) Alkaline Phosphatase 71 U/L (45-117) Total Protein 8.0 GM/DL (6.4-8.2) Albumin 3.3 GM/DL (3.4-5.0) White Blood Count 4.7 TH/MM3 6.9 TH/MM3 (4.0-11.0) (4.0-11.0) Red Blood Count 5.16 MIL/MM3 5.06 MIL/MM3 (4.00-5.30) (4.00-5.30) Hemoglobin 14.7 GM/DL 14.4 GM/DL (11.6-15.3) (11.6-15.3) Hematocrit 44.9 % 43.4 % (35.0-46.0) (35.0-46.0) Mean Corpuscular Volume 86.9 FL 85.6 FL (80.0-100.0) (80.0-100.0) Mean Corpuscular Hemoglobin 28.5 PG 28.5 PG (27.0-34.0) (27.0-34.0) Mean Corpuscular Hemoglobin 32.8 % 33.3 % Concent (32.0-36.0) (32.0-36.0) Red Cell Distribution Width 12.8 % 12.7 % (11.6-17.2) (11.6-17.2) Platelet Count 221 TH/MM3 188 TH/MM3 (150-450) (150-450) Mean Platelet Volume 8.5 FL 9.0 FL (7.0-11.0) (7.0-11.0) Hemoglobin A1c 7.2 % (4.3-6.0) Assessment and Plan Problem List: (1) New onset atrial fibrillation (2) Atrial fibrillation with rapid ventricular response (3) Diabetes mellitus with hyperglycemia (4) HTN (hypertension) Assessment and Plan 1) New onset Atrial Fibrillation, CHADSVASc = 4 Started on Eliquis 5mg BID Heart rates mostly controlled on Cardizem, but with break through episodes 2) EF 60-65% 3) Will ask Dr. Knox, EP, to see the patient for consideration of ablation vs increase in medications, although hypotensive yesterday with RVR Problem Qualifiers (1) Diabetes mellitus with hyperglycemia: (2) HTN (hypertension): Qualified Code: I10 - Essential hypertension Gabino Sinclair DO June 25, 2016 15:41
--- NOTE | 2016-06-25 17:40 | HHI.PR ---
Subjective Remarks + constipation- - just had a large BM no complains of chest pain or palpitations 1 week history of clugh, fever and chills with productive yellowish sputum Objective Vitals Vital Signs Date Time Temp Pulse Resp B/P Pulse Ox O2 Delivery O2 Flow Rate FiO2 06/25/16 16:02 97.9 90 19 143/68 95 06/25/16 12:09 98.1 92 18 130/66 94 06/25/16 10:51 96 06/25/16 10:13 2.00 06/25/16 08:29 97.9 78 18 120/58 96 06/25/16 08:00 98 Room Air 06/25/16 04:00 97.4 93 20 122/58 93 06/25/16 04:00 Room Air 06/25/16 00:00 Room Air 06/25/16 00:00 97.3 77 18 120/65 94 06/24/16 20:00 97.7 97 20 118/79 93 06/24/16 20:00 101 06/24/16 20:00 Room Air 06/24/16 18:44 103 I/O 06/24/16 06/24/16 06/24/16 06/25/16 06/25/16 06/25/16 07:00 15:00 23:00 07:00 15:00 23:00 Intake Total 630 ml 360 ml 120 ml 600 ml Balance 630 ml 360 ml 120 ml 600 ml Intake Oral 630 ml 360 ml 120 ml 600 ml # Voids 3 3 2 2 4 # Bowel Movements 0 1 Result Diagram: 06/24/16 1230 06/24/16 1230 Imaging Last Impressions Chest X-Ray 06/23/16 0000 Signed Impressions: Service Date/Time: Thursday, June 23, 2016 11:33 - CONCLUSION: 1. No evidence of pneumonia. 2. Mild cardiomegaly. Yovany Canseco MD Objective Remarks awake and alert, NAD anicteric no nuchal rigidity no rales , no wheezes irregularly irregular rhythm abdomen soft, nontender extremities no edema neuro exam- non focal Procedures None A/P Assessment and Plan 65 years old female- 1 week history of cough and fever and sputum- took OTC meds - excedrin new onset atrial fibrillation- in RVR- now rate controlled ? medication related history of hypertension -cardiology ff. check echo -on CCB 120 mg CD daily, Eliquis 5 mg po bid -continue meds- Lisinopril continue telemetry. Dr. Knox consulted Haemophilus Influenzae Pneumonia- few occasional wheeze on exam- good sats Acute hyerreactive airway disease from PNA -continue antibiotics- rocephin + zithromax -duonebs x 1now then q 8 prn DM type 2 - ff blood sugars- on Insulin and Metformin Hyperlipidemia- statins discuss with patient and daughter Viviana Sanchez MD June 25, 2016 17:40 (8) Wheezing ICD Code: R06.2 Status: Acute (9) CAP (community acquired pneumonia) ICD Code: J18.9 Status: Acute Assessment and Plan 65 years old female- 1 week history of cough and fever and sputum- took OTC meds - excedrin new onset atrial fibrillation- in RVR- now rate controlled ? medication related history of hypertension -cardiology ff. check echo -on CCB 120 mg CD daily, Eliquis 5 mg po bid -continue meds- Lisinopril continue telemetry Haemophilus Influenzae Pneumonia- few occasional wheeze on exam- good sats Acute hyerreactive airway disease from PNA -continue antibiotics- rocephin + zithromax -duonebs x 1now then q 8 prn DM type 2 - ff blood sugars- on Insulin and Metformin Hyperlipidemia- statins discuss with patient and daughter Problem Qualifiers (1) Diabetes mellitus with hyperglycemia: (2) HTN (hypertension): Qualified Code: I10 - Essential hypertension Viviana Sanchez MD June 25, 2016 17:40
[2016-06-25] MEDS ORDERED: RESP: ALBUTEROL 2.5 MG/IPRATROPIUM 0.5 MG NEB (PRN) NEB (18:00)
[2016-06-25] MEDS: GABAPENTIN 300 MG CAP PO SCH (20:55)
[2016-06-26 00:43] VITALS: BP 112/56; PULSE 89; RESP 20; TEMP 97.7; O2SAT 93
[2016-06-26 04:00] VITALS: BP 109/59; PULSE 95; RESP 18; TEMP 97.6; O2SAT 93
[2016-06-26] MEDS: INSULIN ASPART SUPPLEMENTAL SCALE SQ SCH ×2 (05:51→11:00)
--- NOTE | 2016-06-26 06:56 | MB ---
cc: CECILIA CHUNG M.D. DATE OF CONSULTATION 06/25/2016 REASON FOR CONSULTATION Atrial fibrillation with fast ventricular response. HISTORY Mrs. Santos is a 65-year-old female with a history of high blood pressure, hyperlipidemia, diabetes, she has morbid obesity, admitted due to atrial fibrillation with fast ventricular response. During hospitalization, medication was given, heart rate control. Subsequently developed atrial fibrillation with fast ventricular response and hypotension. The patient was transferred to this center for further management. Eliquis was initiated. I was consulted for further evaluation and management. The chart was reviewed. The patient was evaluated. ALLERGIES None reported. SOCIAL HISTORY Negative for smoking and drinking. FAMILY HISTORY Noncontributory to her current medical condition. MEDICATIONS She is currently on: 1. Zithromax 50 2. Aczone 3. Eliquis 50 mg twice a day 4. Cardizem CD 120 mg a day 5. Neurontin 6. Lisinopril 7. Pravachol REVIEW OF SYSTEMS She refers she is tired, but no chest pain or chest discomfort. She was coughing a couple of days ago, but doing better. No vomiting. No fever. PHYSICAL EXAM Alert, fully oriented. VITAL SIGNS: Her blood pressure 143/68, pulse 90, respiratory rate 18-20. LUNGS: Ventilated. CARDIOVASCULAR: S1-S2, irregular tachycardic. ABDOMEN: Soft. No mass. Obese. No bruits. EXTREMITIES: No edema. Telemetry shows atrial fibrillation. ASSESSMENT AND RECOMMENDATIONS Mrs. Santos is back into atrial fibrillation. Heart rate is in the 90-110. She is on Cardizem. She is on Eliquis. She is a CHADS-VASc 3. She has a high risks of ischemic event. Also, when the patient was admitted, she has a common cold. Apparently that fever was managed by Dr. Sanchez. There is a suspicion of the possibly of atrial fibrillation exacerbated by the flu-like syndrome. At that point, my recommendation is to continue on the current medications. Increase Cardizem. Blood pressure is adequate. The goal at this point is rate controlled. When the respiratory condition resolves, then ablation can be considered. The case discussed with the patient and her daughter. MD REJI Self/NUSRAT /6:57 PM /6:42 AM
[2016-06-26 08:00] VITALS: PULSE 74
[2016-06-26 08:28] VITALS: BP 124/64; PULSE 94; RESP 18; TEMP 97.7; O2SAT 98
[2016-06-26] MEDS ORDERED: DILTIAZEM-CD 240 MG CAP ER PO SCH (09:00)
[2016-06-26] MEDS: PRAVASTATIN SOD 10 MG TAB PO SCH (09:00)
[2016-06-26] MEDS: APIXABAN 5 MG TABLET PO SCH (09:00)
--- NOTE | 2016-06-26 10:55 | PD.CARD.PN ---
Subjective Subjective Remarks Doing well, less cough Phlegm is no longer green Objective Medications Current Medications Medications (Trade) Dose Ordered Sig/Jeanine Route Start Time Stop Time Status Last Admin (NS Flush) 2 ml UNSCH PRN IV FLUSH 06/22/16 19:15 (NS Flush) 2 ml BID IV FLUSH 06/22/16 21:00 06/25/16 20:55 (Neurontin) 300 mg HS PO 06/22/16 21:00 06/25/16 20:55 (Prinivil) 20 mg DAILY PO 06/23/16 09:00 Hold (Pravachol) 10 mg DAILY PO 06/23/16 09:00 06/26/16 09:00 (D50w (Vial) Inj) 25 ml UNSCH PRN IV PUSH 06/22/16 19:30 Glucagon 1 mg 1 mg UNSCH PRN OTHER 06/22/16 19:30 Ceftriaxone Sodium 2000 mg/ Sodium Chloride 100 ml @ 200 mls/hr Q24H IV 06/23/16 12:00 06/25/16 12:00 (Zithromax Inj/ NS 250 ml Inj) 250 ml @ 250 mls/hr Q24H IV 06/23/16 13:00 06/25/16 13:00 (Eliquis) 5 mg BID PO 06/23/16 21:00 06/26/16 09:00 (Cardizem Cd) 240 mg DAILY PO 06/26/16 09:00 06/26/16 09:00 Vital Signs / I&O Vital Signs Date Time Temp Pulse Resp B/P Pulse Ox O2 Delivery O2 Flow Rate FiO2 06/26/16 08:28 97.7 94 18 124/64 98 06/26/16 04:00 97.6 95 18 109/59 93 06/26/16 00:43 97.7 89 20 112/56 93 06/25/16 20:09 87 06/25/16 20:00 98.1 86 20 119/69 96 06/25/16 20:00 Room Air 06/25/16 16:02 97.9 90 19 143/68 95 06/25/16 12:09 98.1 92 18 130/66 94 06/25/16 10:51 96 I/O 06/25/16 06/25/16 06/25/16 06/26/16 06/26/16 06/26/16 07:00 15:00 23:00 07:00 15:00 23:00 Intake Total 120 ml 600 ml Balance 120 ml 600 ml Intake Oral 120 ml 600 ml # Voids 2 4 2 2 # Bowel Movements 0 1 0 Physical Exam GENERAL: NAD, AAOx3 SKIN: Warm and dry. HEAD: Atraumatic. Normocephalic. EYES: Pupils equal and round. No scleral icterus. No injection or drainage. ENT: No nasal bleeding or discharge. Mucous membranes pink and moist. NECK: Trachea midline. No JVD. CARDIOVASCULAR: Irregularly irregular RESPIRATORY: No accessory muscle use. Decreased breath sounds bilaterally GASTROINTESTINAL: Abdomen soft, non-tender, nondistended. Hepatic and splenic margins not palpable. MUSCULOSKELETAL: Trace edema bilaterally NEUROLOGICAL: Awake and alert. No obvious cranial nerve deficits. Motor grossly within normal limits. Five out of 5 muscle strength in the arms and legs. Normal speech. PSYCHIATRIC: Appropriate mood and affect; insight and judgment normal. Laboratory Laboratory Tests Test 06/24/16 12:30 White Blood Count 6.9 TH/MM3 (4.0-11.0) Red Blood Count 5.06 MIL/MM3 (4.00-5.30) Hemoglobin 14.4 GM/DL (11.6-15.3) Hematocrit 43.4 % (35.0-46.0) Mean Corpuscular Volume 85.6 FL (80.0-100.0) Mean Corpuscular Hemoglobin 28.5 PG (27.0-34.0) Mean Corpuscular Hemoglobin 33.3 % Concent (32.0-36.0) Red Cell Distribution Width 12.7 % (11.6-17.2) Platelet Count 188 TH/MM3 (150-450) Mean Platelet Volume 9.0 FL (7.0-11.0) Sodium Level 141 MEQ/L (136-145) Potassium Level 3.7 MEQ/L (3.5-5.1) Chloride Level 107 MEQ/L (98-107) Carbon Dioxide Level 25.7 MEQ/L (21.0-32.0) Anion Gap 8 MEQ/L (5-15) Blood Urea Nitrogen 16 MG/DL (7-18) Creatinine 0.73 MG/DL (0.50-1.00) Estimat Glomerular Filtration 80 ML/MIN (>89) Rate Random Glucose 122 MG/DL (74-106) Hemoglobin A1c 7.2 % (4.3-6.0) Calcium Level 8.6 MG/DL (8.5-10.1) Assessment and Plan Problem List: (1) New onset atrial fibrillation (2) Atrial fibrillation with rapid ventricular response (3) Diabetes mellitus with hyperglycemia (4) HTN (hypertension) Assessment and Plan 1) New onset Atrial Fibrillation, CHADSVASc = 4 Started on Eliquis 5mg BID Heart rates mostly controlled on Cardizem after increase by EP cardiology Afib thought to be set off by current pulmonary issues 2) EF 60-65% 3) Will follow up in the office in [place] Offered stress test inpatient to rule out chronic CAD as a cause for Afib but with current pulmonary issues would like to hold off Consider outpatient stress testing Problem Qualifiers (1) Diabetes mellitus with hyperglycemia: (2) HTN (hypertension): Qualified Code: I10 - Essential hypertension Gabino Sinclair DO June 26, 2016 10:55
[2016-06-26 12:07] VITALS: BP 123/65; PULSE 95; RESP 18; TEMP 98.2; O2SAT 94
[2016-06-26] MEDS: cefTRIAXone INJ 2,000 MG in SODIUM CHLORIDE 0.9% INJ 100 ML IV SCH (13:22)
--- NOTE | 2016-06-26 13:50 | HHI.PR ---
Subjective Remarks patient feeling much better telemetry- a fib- rate 80s sputum whitish- coughing less Objective Vitals Vital Signs Date Time Temp Pulse Resp B/P Pulse Ox O2 Delivery O2 Flow Rate FiO2 06/26/16 12:07 98.2 95 18 123/65 94 06/26/16 08:28 97.7 94 18 124/64 98 06/26/16 04:00 97.6 95 18 109/59 93 06/26/16 00:43 97.7 89 20 112/56 93 06/25/16 20:09 87 06/25/16 20:00 98.1 86 20 119/69 96 06/25/16 20:00 Room Air 06/25/16 16:02 97.9 90 19 143/68 95 I/O 06/25/16 06/25/16 06/25/16 06/26/16 06/26/16 06/26/16 07:00 15:00 23:00 07:00 15:00 23:00 Intake Total 120 ml 600 ml Balance 120 ml 600 ml Intake Oral 120 ml 600 ml # Voids 2 4 2 2 # Bowel Movements 0 1 0 Result Diagram: 06/24/16 1230 06/24/16 1230 Imaging Last Impressions Chest X-Ray 06/23/16 0000 Signed Impressions: Service Date/Time: Thursday, June 23, 2016 11:33 - CONCLUSION: 1. No evidence of pneumonia. 2. Mild cardiomegaly. Yovany Canseco MD Objective Remarks awake and alert, NAD anicteric no nuchal rigidity no rales , no wheezes, rare rhonchi irregularly irregular rhythm abdomen soft, nontender extremities no edema neuro exam- non focal Procedures None A/P Problem List: (1) New onset atrial fibrillation ICD Code: I48.91 Status: Acute (2) Atrial fibrillation with rapid ventricular response ICD Code: I48.91 Status: Resolved (3) Diabetes mellitus with hyperglycemia ICD Code: E11.65 Status: Chronic (4) H/O hypoglycemia ICD Code: Z86.39 Status: Acute (5) Hyperlipidemia associated with type 2 diabetes mellitus ICD Code: E11.69 Status: Chronic (6) HTN (hypertension) ICD Code: I10 Status: Chronic (7) Cough ICD Code: R05 Status: Acute (8) Wheezing ICD Code: R06.2 Status: Acute (9) CAP (community acquired pneumonia) ICD Code: J18.9 Status: Acute Assessment and Plan 65 years old female- 1 week history of cough and fever and sputum- took OTC meds - excedrin New onset atrial fibrillation- in RVR- now rate controlled History of hypertension -Cardizem CD 240 mg po daily -cardiology ff. clered for DC- OP ff up for ischemic work up -continue meds- Lisinopril continue telemetry. Dr. Knox - OP ff up -Eliuqis 5 mg po bid Haemophilus Influenzae Pneumonia- few occasional wheeze on exam- good sats Acute hyerreactive airway disease from PNA -continue antibiotics- rocephin + zithromax -duonebs x 1now then q 8 prn Levaquin 750 mg po dialy on DC x 7 days DM type 2 - ff blood sugars- on Insulin and Metformin Hyperlipidemia- statins DC today OP ff up with PCP in 3 days Problem Qualifiers (1) Diabetes mellitus with hyperglycemia: (2) HTN (hypertension): Qualified Code: I10 - Essential hypertension Viviana Sanchez MD June 26, 2016 13:50
[2016-06-26] MEDS ORDERED: ALBUTEROL SULFATE 90 MCG/ACT HFA 18 GM INHALER INH SCH (14:00)
[2016-06-26] MEDS ORDERED: CARD240C6 PO (14:00)
[2016-06-26] MEDS ORDERED: LEVA750T PO (14:00)
[2016-06-26] MEDS ORDERED: VENTAER INH (14:00)
[2016-06-26] MEDS ORDERED: APIX5TAB PO (14:01)
[2016-06-26] MEDS: AZITHROMYCIN INJ 500 MG in SODIUM CHLOR 0.9% 250 ML INJ 250 ML IV SCH (14:03)
--- NOTE | 2016-06-26 14:10 | HHI.DS ---
Discharge Summary Admission Date June 22, 2016 at 17:50 Discharge Date: June 26, 2016 Admitting Diagnosis (1) New onset atrial fibrillation ICD Code: I48.91 (2) CAP (community acquired pneumonia) ICD Code: J18.9 Diagnosis: Principal (3) Diabetes mellitus with hyperglycemia ICD Code: E11.65 Diagnosis: Secondary (4) H/O hypoglycemia ICD Code: Z86.39 (5) Hyperlipidemia associated with type 2 diabetes mellitus ICD Code: E11.69 Diagnosis: Principal (6) HTN (hypertension) ICD Code: I10 Diagnosis: Secondary Procedures None Brief History - From Admission Ms. Santos is 65 yo, /[place]ic with history inclusive of diabetes, hypertension, and hyperlipidemia. Pt reported she had been ill for the past week with symptoms of malaise, headache 9x 2 days), nausea, diarrhea ("1-2 times"), backache (from coughing) and decreased food and fluid intake. She took two doses of Excedrin migraine for her headache and "it went away." pt reported she developed a cough yesterday (06/21/16) and shortly thereafter developed chest pain. Pt noted her fluid intake was decreased yet continued to have her daily "cup of coffee." Pt acknowledged she is "addicted to my coffee. If I don't get it I get a headache." Pt denied chest pain radiating to her neck or shoulder and denied nausea associated with the chest pain. Pt went to see her PCP who obtained an EKG. Upon viewing it, Ms. Santos was sent to [facility] for evaluation and management of her condition. A 10 point ROS was conducted, and except as noted above was negative. Pt denied any other issues or concerns. CBC/BMP: 06/24/16 1230 06/24/16 1230 Significant Findings Laboratory Tests Test 06/24/16 12:30 Estimat Glomerular Filtration 80 ML/MIN (>89) Rate Random Glucose 122 MG/DL (74-106) Hemoglobin A1c 7.2 % (4.3-6.0) Imaging Last Impressions Chest X-Ray 06/23/16 0000 Signed Impressions: Service Date/Time: Thursday, June 23, 2016 11:33 - CONCLUSION: 1. No evidence of pneumonia. 2. Mild cardiomegaly. Yovany Canseco MD PE at Discharge awake and alert, NAD anicteric no nuchal rigidity no rales , no wheezes, rare rhonchi irregularly irregular rhythm abdomen soft, nontender extremities no edema neuro exam- non focal Pt update on day of discharge afebrile- in afib rhythm rate controlled sputum minimal now whitish, lungs no rales- rare rhonchi no edema Hospital Course 65 years old female- 1 week history of cough and fever and sputum- took OTC meds - excedrin New onset atrial fibrillation- in RVR- now rate controlled History of hypertension -Cardizem CD 240 mg po daily -cardiology ff. clered for DC- OP ff up for ischemic work up -continue meds- Lisinopril continue telemetry. Dr. Knox - OP ff up -Eliuqis 5 mg po bid Haemophilus Influenzae Pneumonia- few occasional wheeze on exam- good sats Acute hyerreactive airway disease from PNA -continue antibiotics- rocephin + zithromax -duonebs x 1now then q 8 prn Levaquin 750 mg po dialy on DC x 7 days DM type 2 - ff blood sugars- on Insulin and Metformin- d/w her to adjust start half of home dose and increase as appetite improves Hyperlipidemia- statins advise her on diet and enroll on exercise -program for weight reduction after cardiac work up completed DC today OP ff up with PCP in 3 days FF up with [facility] in 1 week Pt Condition on Discharge: Stable Discharge Disposition: Discharge Home Discharge Time: <= 30 minutes Discharge Instructions DIET: Follow Instructions for: Heart Healthy Diet, Diabetic Diet Speech Therapy-Diet Recommends: Regular Activities you can perform: Weight Bearing as Bridgett Activities to Avoid: Prolonged Standing, Strenuous Activity Follow up Referrals: Cardiology - 1 Week with [facility] PCP Follow-up - 2-3 Days with [facility] New Medications: Guaifenesin ER 12 HR (Mucinex ER 12 HR) 600 Mg Nancie 600 MG PO BID Chest Congestion/Cough Days 5 Ref 0 TAB Levofloxacin (Levaquin) 750 Mg Tab 750 MG PO DAILY Infection #7 Ref 0 TAB Albuterol 18 GM Inh (Ventolin Hfa 18 GM Inh) 90 Mcg/Act Aer 2 PUFF INH Q6HR HAD Days 10 INHALER Apixaban (Eliquis) 5 Mg Tab 5 MG PO BID AFIB Days 30 TAB Diltiazem CD 24 HR (Cardizem CD 24 HR) 240 Mg Caper 240 MG PO DAILY ARRHY Days 30 CAP Continued Medications: Gabapentin (Gabapentin) 300 Mg Cap 300 MG PO HS #30 Ref 0 CAP Lovastatin (Lovastatin) 10 Mg Tab 10 MG PO DAILY Cholesterol Management #30 Ref 0 TAB Metformin (Metformin) 500 Mg Tab Unknown Dose PO BIDPC With meals Blood Sugar Management #60 Ref 0 TAB Discontinued Medications: Insulin Human Isophane-Regular 70-30 Inj (Novolin 70-30 Inj) 1,000 Unit/10 Ml Vial 45 UNITS SQ BID Blood Sugar Management Ref 0 ML Lisinopril (Lisinopril) 20 Mg Tab 20 MG PO DAILY #30 Ref 0 TAB Pioglitazone (Pioglitazone) 15 Mg Tab 15 MG PO DAILY Blood Sugar Management #30 Ref 0 TAB Viviana Sanchez MD June 26, 2016 14:10
[2016-06-26] MEDS ORDERED: MUCI600T PO (14:21)
[2016-06-26] MEDS ORDERED: guaiFENesin E.R. 600 MG TAB PO SCH (14:30)
[2016-06-26 15:59] VITALS: BP 133/63; PULSE 88; RESP 18; TEMP 98; O2SAT 94
--- NOTE | 2016-06-27 11:04 | EKG ---
Date Performed: 06/24/2016 Time Performed: 11:07:20 PTAGE: 65 years EKG: Atrial fibrillation. Inferior infarct - age undetermined Abnormal ECG PREVIOUS TRACING : 06/24/2016 11.07 Since previous tracing, no significant change noted DOCTOR: Aleyda Posey Interpretating Date/Time 06/28/2016 08:49:20
== END 2016-06-26 16:35 | disposition home or self-care (01) | DRG 308 ==
LOC: PHEDDLT 15:23 → PH3A 17:50 → N04B 06-24 16:32
PROVIDERS: ADMIT Internal Medicine; ATTEND Internal Medicine
DX: I48.91 Unspecified atrial fibrillation (principal); J14 Pneumonia due to Hemophilus influenzae; E11.42 Type 2 diabetes mellitus with diabetic polyneuropathy; E11.649 Type 2 diabetes mellitus with hypoglycemia without coma; E86.0 Dehydration; Z68.42 Body mass index [BMI] 45.0-49.9, adult; I10 Essential (primary) hypertension; E78.5 Hyperlipidemia, unspecified; E66.01 Morbid (severe) obesity due to excess calories; E11.65 Type 2 diabetes mellitus with hyperglycemia; K59.00 Constipation, unspecified; Z79.84 Long term (current) use of oral hypoglycemic drugs
CPT/HCPCS: 71010; 71020; 80048; 80053; 82948; 83036; 83735; 83880; 84439; 84443; 84480; 84484; 85025; 85027; 85379; 85610; 85730; 87070; 87184; 87185; 87205; 87449; 87804; 93005; 93306; 94620; 94664; 96372; 96374; 96375; 99281; J0456; J0696; J1650; J1815; J2930; J7040; J7050; J7613